=== PATIENT | female | born 1940 | race Caucasian/White ===

== ENCOUNTER 2018-06-09 06:04 | Day surgery (SDC) | payer MEDICARE, OTHER ==
[~2018-06-09 06:04] MED LIST: Ciprofloxacin 0.3% OPTH SOLN OS SCH; Cyclopentolate 1% Opth (2 ml) OS SCH; Ketorolac Tromethamine 0.5% Opth Soln (3 ml) OS SCH; Lactated Ringer's 500 ML IV ONE; Phenylephrine 2.5% Opht Soln OS SCH; Tropicamide 0.5% Opht Sol OS SCH
[2018-06-09] MEDS ORDERED: Lactated Ringer's 500 ML IV ONE (07:10)
[2018-06-09] MEDS ORDERED: Tetracaine 0.5% Ophth (OR ONLY) ONE (07:41)
[2018-06-09] MEDS ORDERED: Povidone Iodine Ophthalmic 5% Soln ONE (07:41)
[2018-06-09] MEDS ORDERED: Carbachol 0.01% IO ONE (07:41)
[2018-06-09] MEDS ORDERED: Lidocaine 2% MPF (5 ml) Inj ONE (07:42)
[2018-06-09] MEDS ORDERED: Tobramycin/Dexamethasone OPHT OINT ONE (07:42)
[2018-06-09] MEDS ORDERED: Hyaluronidase Human, Recombi 150 U/ML VIAL ONE (07:42)
[2018-06-09] MEDS ORDERED: Chondroitin/Hyaluronate Opth Syringe KIT (0.55 ml-0.5 ml) IO ONE (07:42)
[2018-06-09 07:47] LABS: MEAN CELL VOLUME 88.1 fL (81.0-99.0); MEAN CORPUSCULAR HEMOGLOBIN 29.1 pg (27.0-31.0); MEAN PLATELET VOLUME 8.3 fL (7.2-11.7); RBC 3.77 Mil/uL (3.80-5.20); RED CELL DISTRIBUTION WIDTH 12.4 % (11.5-14.5); WHITE BLOOD COUNT 7.6 K/uL (4.8-10.8)
[2018-06-09 07:54] LABS: CALCIUM 9.5 mg/dl (8.6-10.4)
[2018-06-09] MEDS ORDERED: Propofol 10 mg/ml Inj (20 ML) ONE (09:27)
[2018-06-09] MEDS ORDERED: Midazolam 2 MG/2 ML VIAL ONE (09:27)
[2018-06-09 12:07] VITALS: BP 140/69; PULSE 62; RESP 16; TEMP 97.6; O2SAT 97
--- NOTE | 2018-06-09 20:35 | OP ---
PROCEDURE DATE: 06/09/2018 PREOPERATIVE DIAGNOSIS: Hypermature cataract, left eye. POSTOPERATIVE DIAGNOSIS: Hypermature cataract, left eye. PROCEDURE: Phacoemulsification of left eye, insertion of posterior chamber implant with utilization of capsular dye. SURGEON: Tejas Skaggs MD TYPE OF ANESTHESIA: Local with IV sedation. DESCRIPTION OF PROCEDURE: The patient was brought into the operating room and placed in supine position, prepped and draped in the usual fashion for ophthalmic surgery. Lid speculum inserted, lids and exposing globe. On inspection, there was noted to be a hypermature cataract. A side-port incision was made superiorly and inferiorly with disposable sharp blade. An air bubble was injected in the anterior chamber followed by capsular dye to stain the anterior capsule. The dye was irrigated out of the anterior chamber with balanced salt solution. The anterior chamber was deepened with Viscoat. A near clear corneal incision was made temporally with a 2.75-mm keratome. Capsulorrhexis was performed with Utrata forceps. Hydrodissection was carried out with balanced salt solution. The nucleus was then phacoemulsified. Remaining cortical fragments were aspirated with a split irrigation and aspiration system. The capsular sac was filled with Provisc. Posterior chamber lens was injected into the sac and rotated into horizontal position. Provisc was aspirated out of the anterior chamber. Pupil was constricted with Miochol. The wound was hydrated with balanced salt solution and found to be watertight. Topical Timoptic, Betadine, TobraDex ointment, and pressure patch were applied. The patient tolerated the procedure well. Tejas Skaggs MD
== END 2018-06-09 11:35 | disposition home or self-care (01) ==
LOC: C.SDS 06:04
PROVIDERS: ATTEND Ophthalmology
DX: H25.12 Age-related nuclear cataract, left eye (principal); I10 Essential (primary) hypertension; E78.5 Hyperlipidemia, unspecified; E11.9 Type 2 diabetes mellitus without complications; M19.90 Unspecified osteoarthritis, unspecified site; F32.9 Major depressive disorder, single episode, unspecified; F03.90 Unspecified dementia, unspecified severity, without behavioral disturbance, psychotic disturbance, mood disturbance, and anxiety
CPT/HCPCS: 36415; 66984; 80048; 82948; 85027; J2250; J2704; J3010; J3470; J7120

== ENCOUNTER 2018-06-16 08:41 | Day surgery (SDC) | payer MEDICARE, OTHER ==
--- NOTE | 2018-06-16 11:49 | CP.SDSHP ---
Same Day Surgery H & P - History Proposed Procedure: EGD Pre-Op Diagnosis: abdominal pain - Previous Medical/Surgical History Cardiac: ASHD/CAD Endocrine/Metabolic: Diabetes Comments: dementia - Allergies Allergies: Allergies No Known Allergies Allergy (Verified 06/16/18 09:10) - Physical Exam General Appearance: NAD Vital Signs: Vital Signs 06/16/18 09:00 Temperature 97.7 F Pulse Rate 56 L Respiratory 19 Rate Blood Pressure 154/58 H O2 Sat by Pulse 97 Oximetry Neuro: WNL Heart: WNL Lungs: WNL GI: WNL - {Optional Preform as Required} Abdomen: WNL - Impression Pt. Evaluated Today:Candidate for Anesthesia & Procedure: Yes - Date & Time Date: 06/16/18 Time: 11:49 Short Stay Discharge - Short Stay Discharge Admitting Diagnosis/Reason for Visit: EPIGASTRIC PAIN Disposition: HOME/ ROUTINE Referrals: Valery Thurston MD [Primary Care Provider] -
[2018-06-16] MEDS ORDERED: Lactated Ringer's 1,000 ML IV ONE (11:55)
[2018-06-16] MEDS ORDERED: Etomidate 20 mg/10ml Inj IV ONE (11:55)
[2018-06-16] MEDS ORDERED: Enalaprilat 2.5 MG/2 ML IV ONE (12:43)
[2018-06-16 12:47] VITALS: TEMP 97.5
[2018-06-16 13:10] VITALS: BP 142/57; PULSE 56; O2SAT 99
[2018-06-16 13:45] VITALS: RESP 12
== END 2018-06-16 13:44 | disposition home or self-care (01) ==
LOC: C.ENDO 08:41
PROVIDERS: ATTEND Internal Medicine Gastroenterology
DX: K29.50 Unspecified chronic gastritis without bleeding (principal); E11.9 Type 2 diabetes mellitus without complications; I25.10 Atherosclerotic heart disease of native coronary artery without angina pectoris
CPT/HCPCS: 43239; 82948; 88305; J2001; J2405; J7120